=== PATIENT | male | born 1985 | race Hispanic/Latino ===

== ENCOUNTER 2017-06-02 12:06 | Emergency (ER) | payer OTHER | END 2017-06-02 15:25 | disposition home or self-care (01) | LOC: EDH 12:06 → EEVIPCON 12:06 → EDH 15:25 | DX: S39.81XA Other specified injuries of abdomen, initial encounter (principal); X58.XXXA Exposure to other specified factors, initial encounter; Y93.89 Activity, other specified; Y92.89 Other specified places as the place of occurrence of the external cause; Y99.8 Other external cause status | CPT/HCPCS: 74176 ==